=== PATIENT | female | born 1990 | race Caucasian/White ===

== ENCOUNTER 2017-01-27 08:26 | Emergency (ER) | payer MEDICAID, SELFPAY ==
[2017-01-27 08:33] VITALS: BP 129/68; PULSE 101; RESP 18; TEMP 98.1; O2SAT 100
--- NOTE | 2017-01-27 09:15 | ED PDOC ---
Arrival/HPI - General Chief Complaint: ENT Problem Time Seen by Provider: 01/27/17 09:02 Historian: Patient - History of Present Illness Narrative History of Present Illness (Text): 01/27/17 09:12 26yr old female presents today with 2 day history of sore throat and fevers at home. no vomiting/diarrhea. pt started zithromax yesterday. denies nasal congestion. c/o b/l ear pain. no medications taken for pain/fever today. no sick contacts. eating and drinking with pain. pt states she had fever of 102 at home. Past Medical History - Provider Review Nursing Documentation Reviewed: Yes - Travel History Have you recently traveled outside [place] w/in the past 3 mons?: No - Infectious Disease Hx of Infectious Diseases: None - Tetanus Immunization Tetanus Immunization: Unknown - Psychiatric Hx Substance Use: No Family/Social History - Physician Review Nursing Documentation Reviewed: Yes Family/Social History: Unknown Family HX Smoking Status: Never Smoked Hx Alcohol Use: Yes Frequency of alcohol use: Socially Hx Substance Use: No Allergies/Home Meds Allergies/Adverse Reactions: Allergies No Known Allergies Allergy (Verified 01/27/17 08:32) Home Medications: Home Meds Medication Instructions Recorded Confirmed Z-Sánchez 1 tab PO DAILY 01/27/17 01/27/17 Review of Systems - Review of Systems Constitutional: Fevers. absent: Fatigue ENT: Sore Throat, Other (b/l ear pain ). absent: Sinus Congestion Respiratory: absent: SOB, Cough Cardiovascular: absent: Chest Pain, Palpitations Gastrointestinal: absent: Abdominal Pain, Nausea, Vomiting Musculoskeletal: absent: Arthralgias Skin: absent: Rash, Pruritis Neurological: absent: Headache, Dizziness Psychiatric: absent: Anxiety, Depression Physical Exam Vital Signs Reviewed: Yes Vital Signs Temp Pulse Resp BP Pulse Ox 01/27/17 08:27 98.1 F 101 H 18 129/68 100 Temperature: Afebrile Blood Pressure: Normal Pulse: Tachycardic Respiratory Rate: Normal Appearance: Positive for: Well-Appearing, Non-Toxic, Comfortable Pain Distress: None Mental Status: Positive for: Alert and Oriented X 3 - Systems Exam Head: Present: Atraumatic Conjunctiva: Present: Normal Ears: Present: Normal, NORMAL TM. No: Erythema Mouth: Present: Moist Mucous Membranes Pharnyx: Present: ERYTHEMA, EXUDATE, TONSILS ENLARGED. No: Peritonsilar Swelling, Uvular Deviation, Muffled/Hoarse Voice, Strider, Soft Palate/Uvular Edema Nose (External): Present: Atraumatic Nose (Internal): Present: Normal Inspection Neck: Present: Normal Range of Motion, Lymphadenopathy, Trachea Midline Respiratory/Chest: Present: Clear to Auscultation, Good Air Exchange. No: Respiratory Distress, Accessory Muscle Use Cardiovascular: Present: Regular Rate and Rhythm Neurological: Present: GCS=15 Skin: Present: Warm, Dry, Normal Color. No: Rashes Psychiatric: Present: Alert, Oriented x 3 Medical Decision Making ED Course and Treatment: 01/27/17 09:15 Patient is nontoxic well appearing in no distress. Vital signs are stable Tolerating p.o. fluids and solids amoxicillin po Toradol 15 mg IM Decadron 10 mg IM Patient reassessment: Patient feeling better after medications, vital signs stable. Moist mucous membranes. I advised follow up with primary care physician and ENT specialist within the next 2 days, advised to increase fluids take medications as prescribed and return if symptoms worsen persist or if new symptoms develop Patient verbalizes understanding of discharge instructions and need for immediate followup. IMPRESSION; pharyngitis Motrin every 6 hours as needed for pain/fever reduction Increase fluids amoxicillin; 3 times daily x10 days Follow up primary care physician within the next 2 days Follow up with the ENT specialist within the next 2 days. Saltwater gargles, throat lozenges Return if symptoms worsen persist or if the symptoms develop - Medication Orders Current Medication Orders: Amoxicillin (Amoxil 500 Mg Cap) 500 mg PO STAT STA PRN Reason: Protocol Stop: 01/27/17 09:12 Dexamethasone (Decadron Inj) 10 mg IM STAT STA Stop: 01/27/17 09:12 Disposition/Present on Arrival - Present on Arrival Any Indicators Present on Arrival: No History of DVT/PE: No History of Uncontrolled Diabetes: No Urinary Catheter: No History of Decub. Ulcer: No History Surgical Site Infection Following: None - Disposition Have Diagnosis and Disposition been Completed?: Yes Diagnosis: Strep pharyngitis Disposition: HOME/ ROUTINE Disposition Time: 09:14 Patient Plan: Discharge Patient Problems: Current Active Problems Problem Status Diagnosed Strep pharyngitis Acute Condition: GOOD Discharge Instructions (ExitCare): Pharyngitis (ED) Additional Instructions: Motrin every 6 hours as needed for pain/fever reduction Increase fluids amoxicillin; 3 times daily x10 days Follow up primary care physician within the next 2 days Follow up with the ENT specialist within the next 2 days. Saltwater gargles, throat lozenges Return if symptoms worsen persist or if the symptoms develop Prescriptions: Amoxicillin 500 mg PO TID #30 tab Ibuprofen [Motrin] 600 mg PO Q6H PRN #20 tab PRN Reason: pain/fever reduction Referrals: Evelyn Smith MD [Primary Care Provider] - Follow up with primary Paul Cisneros DO [Staff Provider] - Follow up with primary Forms: WORK NOTE
== END 2017-01-27 10:15 | disposition home or self-care (01) ==
LOC: ED 08:26
DX: J02.0 Streptococcal pharyngitis (principal)
CPT/HCPCS: 96372; 99283; J1100; J1885

== ENCOUNTER 2017-03-15 06:06 | Emergency (ER) | payer SELFPAY ==
[2017-03-15 06:35] VITALS: BP 116/65; PULSE 95; RESP 18; TEMP 98.9; O2SAT 100
--- NOTE | 2017-03-15 06:36 | ED PDOC ---
Arrival/HPI - General Chief Complaint: Flu-like Symptoms Time Seen by Provider: 03/15/17 06:27 - History of Present Illness Narrative History of Present Illness (Text): 26 y/o F p/w sore throat, bilateral ear pain since last night. Reports fever 102 last night. Took 2 Tylenol 5 hours ago. Denies neck stiffness, dyspnea, dysuria. Past Medical History - Infectious Disease Hx of Infectious Diseases: None - Tetanus Immunization Tetanus Immunization: Unknown - Psychiatric Hx Substance Use: No Family/Social History Family/Social History: No Known Family HX Smoking Status: Never Smoked Hx Alcohol Use: Yes Hx Substance Use: No Allergies/Home Meds Allergies/Adverse Reactions: Allergies No Known Allergies Allergy (Verified 01/27/17 08:32) Home Medications: Home Meds Medication Instructions Recorded Confirmed Z-Sánchez 1 tab PO DAILY 01/27/17 01/27/17 Review of Systems - Physician Review All systems were reviewed & negative as marked: Yes - Review of Systems Constitutional: Fevers Respiratory: absent: SOB Cardiovascular: absent: Chest Pain Physical Exam Vital Signs Temp Pulse Resp BP Pulse Ox 03/15/17 06:35 98.9 F 95 H 18 116/65 100 Temperature: Afebrile Blood Pressure: Normal Pulse: Regular Respiratory Rate: Normal Appearance: Positive for: Non-Toxic Mental Status: Positive for: Alert and Oriented X 3 - Systems Exam Head: Present: Normocephalic Pupils: Present: PERRL Ears: Present: Other (L TM dull) Mouth: Present: Moist Mucous Membranes Pharnyx: Present: TONSILS ENLARGED Neck: No: Meningeal Signs Respiratory/Chest: Present: Clear to Auscultation Cardiovascular: Present: Regular Rate and Rhythm Abdomen: No: Tenderness Back: No: CVA Tenderness Upper Extremity: Present: NORMAL PULSES Lower Extremity: No: Tenderness, Swelling Neurological: Present: GCS=15 Skin: Present: Normal Color. No: Rashes Lymphatic: No: Cervical Adenopathy Psychiatric: Present: Alert Medical Decision Making ED Course and Treatment: Patient has follow up with ENT in 2 weeks. Treated with amoxicillin, toradol, and decadron. Return to ER for worsening pain, fever, stiff neck, inability to take PO, worsening swelling. - Medication Orders Current Medication Orders: Amoxicillin (Amoxil 500 Mg Cap) 500 mg PO STAT STA PRN Reason: Protocol Stop: 03/15/17 06:33 Dexamethasone (Decadron) 10 mg PO STAT STA Stop: 03/15/17 06:33 Ketorolac Tromethamine (Toradol) 15 mg IM STAT STA Stop: 03/15/17 06:33 Disposition/Present on Arrival - Present on Arrival Any Indicators Present on Arrival: No History of DVT/PE: No History of Uncontrolled Diabetes: No Urinary Catheter: No History of Decub. Ulcer: No History Surgical Site Infection Following: None - Disposition Have Diagnosis and Disposition been Completed?: Yes Diagnosis: Tonsillitis Disposition: HOME/ ROUTINE Disposition Time: 06:36 Patient Plan: Discharge Condition: STABLE Discharge Instructions (ExitCare): Tonsillitis (ED) Prescriptions: Amoxicillin 875 mg PO BID #14 tablet Ibuprofen [Motrin] 600 mg PO Q6 #25 tab Forms: WORK NOTE
== END 2017-03-15 07:06 | disposition home or self-care (01) ==
LOC: ED 06:06
DX: J03.90 Acute tonsillitis, unspecified (principal)

== ENCOUNTER 2017-08-27 06:34 | Emergency (ER) | payer OTHER ==
[2017-08-27 06:47] VITALS: TEMP 98; O2SAT 100
[2017-08-27 06:56] VITALS: BMI 28.1
[2017-08-27] MEDS ORDERED: Morphine 4 mg/ml ISec IVP STA (07:20)
[2017-08-27] MEDS ORDERED: Sodium Chloride 0.9% 1,000 ML IV STA (07:23)
--- NOTE | 2017-08-27 07:35 | ED PDOC ---
Arrival/HPI - General Chief Complaint: Medical Clearance Time Seen by Provider: 08/27/17 07:16 Historian: Patient - History of Present Illness Narrative History of Present Illness (Text): 08/27/17 10:18 A 27 year old female, whose past medical history includes pharyngitis, surgical history includes tonsillectomy, presents to the emergency department for post operation pain. The patient reports she has the procedure done [address] Byrd. She states the pain is so severe, she can barely speak and can not eat or drink. She also notes that she was bleeding earlier this morning, but no longer is bleeding. The patient denies any fever, abdominal pain, shortness of breath, chest pain, or any other complaints at this time. Time/Duration: < week (x 4 days ) Symptom Onset: Gradual Symptom Course: Unchanged Severity Level: 10 Activities at Onset: Significant (surgery) Past Medical History - Provider Review Nursing Documentation Reviewed: Yes - Infectious Disease Hx of Infectious Diseases: None - Tetanus Immunization Tetanus Immunization: Unknown - Psychiatric Hx Substance Use: No - Anesthesia Hx Anesthesia: No Hx Anesthesia Reactions: No Hx Malignant Hyperthermia: No Family/Social History - Physician Review Nursing Documentation Reviewed: Yes Family/Social History: Unknown Family HX Smoking Status: Never Smoked Hx Alcohol Use: Yes Frequency of alcohol use: Socially Hx Substance Use: No Allergies/Home Meds Allergies/Adverse Reactions: Allergies No Known Allergies Allergy (Verified 01/27/17 08:32) Home Medications: Home Meds Medication Instructions Recorded Confirmed Z-Sánchez 1 tab PO DAILY 01/27/17 01/27/17 Review of Systems - Physician Review All systems were reviewed & negative as marked: Yes - Review of Systems Constitutional: absent: Fevers ENT: Sore Throat, Other (throat pain from tonsillectomy) Cardiovascular: absent: Chest Pain Gastrointestinal: absent: Abdominal Pain Musculoskeletal: Neck Pain Physical Exam Vital Signs Reviewed: Yes Vital Signs Temp Pulse Resp BP Pulse Ox 08/27/17 09:05 70 17 132/83 100 08/27/17 06:46 98.0 F 96 H 16 133/78 100 Temperature: Afebrile Blood Pressure: Normal Pulse: Tachycardic Respiratory Rate: Normal Appearance: Positive for: Well-Appearing, Non-Toxic, Comfortable Pain Distress: None Mental Status: Positive for: Alert and Oriented X 3 - Systems Exam Head: Present: Atraumatic, Normocephalic Pupils: Present: PERRL Extroacular Muscles: Present: EOMI Conjunctiva: Present: Normal Mouth: Present: Moist Mucous Membranes Pharnyx: Present: Other (no active bleeding ) Neck: Present: Normal Range of Motion Respiratory/Chest: Present: Clear to Auscultation, Good Air Exchange. No: Respiratory Distress, Accessory Muscle Use Cardiovascular: Present: Regular Rate and Rhythm, Normal S1, S2. No: Murmurs Abdomen: Present: Normal Bowel Sounds. No: Tenderness, Distention, Peritoneal Signs Upper Extremity: Present: Normal Inspection. No: Cyanosis, Edema Lower Extremity: Present: Normal Inspection. No: Edema Neurological: Present: GCS=15, CN II-XII Intact, Speech Normal Skin: Present: Warm, Dry, Normal Color. No: Rashes Psychiatric: Present: Alert, Oriented x 3, Normal Insight, Normal Concentration Medical Decision Making ED Course and Treatment: 08/27/17 07:37 Impression: A 27 year old female with post operation tonsillectomy pain Differential Diagnosis included but are not limited to: Plan: -- Labs -- Decadron. Morphine, IV Fluids -- Reassess and disposition Progress Notes: 08/27/17 7:[address] Cisneros who is covering for Dr. Byrd. Dr. Byrd is requesting the patient receives steroids, pain medications, IV fluids, and a follow up consultation at his office. He does not require any imaging at this time, 08/27/17 08:12 Upon re-evaluation, the patient states she is feeling better and would like to be discharged and wants direct admission to her doctors office. - Lab Interpretations Lab Results: 08/27/17 07:51 08/27/17 07:51 Lab Results 08/27/17 07:51: Sodium 140, Potassium 4.0, Chloride 100, Carbon Dioxide 30, Anion Gap 14, BUN 10, Creatinine 0.7, Est GFR ( Amer) > 60, Est GFR (Non- Af Amer) > 60, Random Glucose 96, Calcium 9.6, Total Bilirubin 0.6, AST 44 H, ALT 57 H, Alkaline Phosphatase 89, Total Protein 8.0, Albumin 4.5, Globulin 3.5 , Albumin/Globulin Ratio 1.3 08/27/17 07:51: PT 11.5, INR 1.04, APTT 27.8 08/27/17 07:51: WBC 7.8, RBC 5.34, Hgb 14.4, Hct 42.3, MCV 79.2 L, MCH 27.0, MCHC 34.0, RDW 12.8, Plt Count 276, MPV 9.5, Gran % 58.6, Lymph % (Auto) 28.9, [place] % (Auto) 11.4 H, Eos % (Auto) 0.8 L, Baso % (Auto) 0.3, Gran # 4.59, Lymph # 2.3, [place] # 0.9 H, Eos # 0.1, Baso # 0.02 08/27/17 07:50: Urine HCG, Qual Negative - Medication Orders Current Medication Orders: Discontinued Medications Dexamethasone (Decadron Inj) 10 mg IVP STAT STA Stop: 08/27/17 07:21 Last Admin: 08/27/17 07:59 Dose: 10 mg IVP Administration Document 08/27/17 07:59 (Rec: 08/27/17 07:59 [id number]) Charges for Administration # of IVP Administrations 1 Sodium Chloride (Sodium Chloride 0.9%) 1,000 mls @ 999 mls/hr IV .Q1H1M STA Stop: 08/27/17 08:23 Last Admin: 08/27/17 07:59 Dose: 999 mls/hr eMAR Start Stop Document 08/27/17 07:59 MR (Rec: 08/27/17 07:59 MR [id number]) Intravenous Solution Start Date 08/27/17 Start Time 07:59 End Date 08/27/17 End time 09:00 Total Infusion Time 61 Morphine Sulfate (Morphine) 4 mg IVP STAT STA Stop: 08/27/17 07:21 Last Admin: 08/27/17 07:59 Dose: 4 mg MAR Pain Assessment Document 08/27/17 07:59 (Rec: 08/27/17 08:00 MR [id number]) Pain Reassessment Is this a pain reassessment? No Sleep Is patient sleeping during reassessment? No Presence of Pain Presence of Pain Yes Pain Scale Used Pain Scale Used Numeric Location Pain Location Body Site Throat Description Description Burning Intensity of Pain at present 10 Pain Behavior Crying Facial Grimacing IVP Administration Document 08/27/17 07:59 MR (Rec: 08/27/17 08:00 MR [id number]) Charges for Administration # of IVP Administrations 1 - Scribe Statement The provider has reviewed the documentation as recorded by the Scribe Ruby Meehan Provider Scribe Attestation: All medical record entries made by the Scribe were at my direction and personally dictated by me. I have reviewed the chart and agree that the record accurately reflects my personal performance of the history, physical exam, medical decision making, and the department course for this patient. I have also personally directed, reviewed, and agree with the discharge instructions and disposition. Disposition/Present on Arrival - Present on Arrival Any Indicators Present on Arrival: No History of DVT/PE: No History of Uncontrolled Diabetes: No Urinary Catheter: No History of Decub. Ulcer: No History Surgical Site Infection Following: None - Disposition Have Diagnosis and Disposition been Completed?: Yes Diagnosis: Pain, postoperative, acute Disposition: HOME/ ROUTINE Disposition Time: 09:00 Condition: STABLE Discharge Instructions (ExitCare): Tonsillectomy (GEN) Additional Instructions: please report to the office of dr beck. he is expecting to see you today. return to emergency room with worsening symptoms or concerns. Referrals: [facility] [Outside] - Follow up with primary Paul Cisneros DO [Staff Provider] - Follow up with primary Zak Byrd DO [Doctor Osteopathy] - Follow up with primary Forms: [employer] (Lao)
[2017-08-27 08:00] LABS: BASO # 0.02 K/mm3 (0.0-2.0); BASO % 0.3 % (0.0-3.0); EOS # 0.1 (0.0-0.7); EOS % 0.8 % (1.5-5.0); GRAN # 4.59 (1.4-6.5); GRAN % 58.6 % (50.0-68.0); HEMATOCRIT 42.3 % (36.0-48.0); LYMPH # 2.3 (1.2-3.4); LYMPH % 28.9 % (22.0-35.0); MEAN CELL VOLUME 79.2 fl (80.0-105.0); MEAN PLATELET VOLUME 9.5 fl (7.0-11.0); MONO # 0.9 (0.1-0.6); MONO % 11.4 % (1.0-6.0); RED CELL DISTRIBUTION WIDTH 12.8 % (11.5-14.5); WHITE BLOOD COUNT 7.8 10^3/ul (4.5-11.0)
[2017-08-27 08:08] LABS: INR 1.04 (0.93-1.08); PARTIAL THROMBOPLASTIN TIME 27.8 Seconds (25.1-36.5)
[2017-08-27 08:09] LABS: ALB/GLOB RATIO 1.3 (1.1-1.8); ALKALINE PHOSPHATASE 89 U/L (38-126); ALT/SGPT 57 U/L (7-56); AST/SGOT 44 U/L (14-36); BILIRUBIN,TOTAL 0.6 mg/dL (0.2-1.3); BLOOD UREA NITROGEN 10 mg/dL (7-21); CALCIUM 9.6 mg/dL (8.4-10.5); CARBON DIOXIDE 30 mmol/L (21-33); CHLORIDE 100 mmol/L (95-110); GFR AFRICAN-AMERICAN > 60; GLUCOSE,RANDOM 96 mg/dL (70-110); SODIUM 140 mmol/L (132-148)
[2017-08-27 09:06] VITALS: BP 132/83; PULSE 70; RESP 17
== END 2017-08-27 09:20 | disposition home or self-care (01) ==
LOC: ED 06:34
DX: G89.18 Other acute postprocedural pain (principal)
CPT/HCPCS: 80053; 84703; 85025; 85610; 85730; 96361; 96374; 96375; 99283; J1100; J2270; J7040